=== PATIENT | male | born 1995 | race Hispanic/Latino ===

== ENCOUNTER 2017-09-11 18:42 | Emergency (ER) | payer BC ==
[~2017-09-11] VITALS: Ht 172.7 cm; Wt 81.8 kg
[2017-09-11] MEDS ORDERED: ALBUTEROL1 IN (19:01)
[2017-09-11 19:36] LABS: HEMATOCRIT 45.9 % (39.0-50.0); HEMOGLOBIN 15.2 g/dl (14.0-18.0); IMMATURE GRANULOCYTES 0.3 % (0.0-1.0); MEAN CELL VOLUME 90.4 fL CALC (80.0-100.0); MEAN CORPUSCULAR HGB 29.9 pG CALC (26.0-32.0); MEAN CORPUSCULAR HGB CONC 33.1 g/L CALC (32.0-36.0); NEUT# 3.91 thou/uL (1.82-7.42); RED BLOOD COUNT 5.08 mill/uL (4.70-6.10); RED CELL DISTRI WIDTH 13.1 % (11.5-15.5); URINE BILIRUBIN - DIPSTICK NEGATIVE (NEGATIVE); URINE BLOOD DIPSTICK NEGATIVE (NEGATIVE); URINE COLOR YELLOW; URINE GLUCOSE - DIPSTICK NEGATIVE (NEGATIVE); URINE KETONE NEGATIVE (NEGATIVE); URINE LEUK ESTERASE NEGATIVE (NEGATIVE); URINE NITRITE - DIPSTICK NEGATIVE (Negative); URINE PROTEIN - DIPSTICK TRACE mg/dL (NEG-TRACE); URINE SPECIFIC GRAVITY >=1.030; URINE UROBILINOGEN - DIPSTICK 0.2 E.U./dL (0.2)
[2017-09-11 19:39] LABS: BARBITURATES NEGATIVE (NEGATIVE); COCAINE NEGATIVE (NEGATIVE); METHADONE NEGATIVE (NEGATIVE); OXCYCODONE NEGATIVE (NEGATIVE); TETRAHYDROCANNABIONOL POSITIVE (NEGATIVE); TRICYLIC ANTIDEPRESSANTS NEGATIVE (NEGATIVE); URINE CLARITY CLEAR
[2017-09-11 19:50] LABS: ALKALINE PHOSPHATASE 107 u/l (38-126); ANION GAP 15 (6-22 (CALC)); BILIRUBIN, TOTAL 0.5 mg/dL (0.0-1.4); BUN 14 mg/dL (9-20); BUN/CREATININE RATIO 16 (12-20 (CALC)); CARBON DIOXIDE 29 mmol/l (22-30); CHLORIDE 103 mmol/l (95-108); CREATININE 0.9 mg/dL (0.7-1.3); GFR > 60 ML/MIN (>=60 (CALC)); GFR FOR AFR.AMER. > 60 ML/MIN (>=60 (CALC)); POTASSIUM 4.2 mmol/l (3.5-5.1); SGOT/AST 73 u/l (17-59); SGPT/ALT 144 u/l (21-72); SODIUM 142 mmol/l (137-146); TOTAL PROTEIN 8.5 g/dL (6.3-8.2)
[2017-09-11 20:31] VITALS: BP 121/74
== END 2017-09-11 20:32 | disposition home or self-care (01) | DRG 897 ==
LOC: ED 18:42
PROVIDERS: Emergency Medicine
DX: F19.10 Other psychoactive substance abuse, uncomplicated (principal); R74.8 Abnormal levels of other serum enzymes; F43.10 Post-traumatic stress disorder, unspecified; J45.909 Unspecified asthma, uncomplicated

== ENCOUNTER 2019-02-28 | Emergency (ER) | payer BC ==
[~2019-02-28] MED LIST: ALBUTEROL1 IN
[2019-02-28] MEDS ORDERED: CLINDAMYCIN300 M1 PO (02:39)
[2019-02-28] MEDS ORDERED: IBUPROFEN600 MG PO (02:39)
== END 2019-02-28 02:55 | disposition home or self-care (01) | DRG 159 ==
DX: K08.89 Other specified disorders of teeth and supporting structures (principal)

== ENCOUNTER 2019-04-17 | Emergency (ER) | payer BC ==
[~2019-04-17] MED LIST changes: +CLINDAMYCIN300 M1 PO; +IBUPROFEN600 MG PO
== END 2019-04-17 10:10 | disposition home or self-care (01) | DRG 605 ==
PROC: 0HQDXZZ Repair Right Lower Arm Skin, External Approach (ICD-10-PCS; principal; 2019-04-17)
DX: S61.511A Laceration without foreign body of right wrist, initial encounter (principal); W25.XXXA Contact with sharp glass, initial encounter; Y93.89 Activity, other specified; Y92.008 Other place in unspecified non-institutional (private) residence as the place of occurrence of the external cause

== ENCOUNTER 2019-04-24 08:14 | Emergency (ER) | payer BC ==
[2019-04-24 10:01] VITALS: BP 113/73
== END 2019-04-24 10:32 | disposition home or self-care (01) | DRG 950 ==
LOC: ED 08:14
DX: S61.511D Laceration without foreign body of right wrist, subsequent encounter (principal); S61.411D Laceration without foreign body of right hand, subsequent encounter; X58.XXXD Exposure to other specified factors, subsequent encounter